=== PATIENT | male | born 1965 | race Caucasian/White ===

== ENCOUNTER 2021-02-08 13:14 | Emergency (ER) | payer OTHER, SELFPAY ==
[2021-02-08] VITALS (30 sets, daily range): BP systolic 102–147; BP diastolic 72–105; PULSE 57–69; RESP 14–20; TEMP 36.9; O2SAT 92–98
--- NOTE | ~2021-02-08 | CT_ITS ---
EXAMINATION: CT abdomen pelvis w con DATE: 02/08/2021 15:09 INDICATION: Right lower quadrant abdominal pain TECHNIQUE: Computed tomography (CT) of the abdomen and pelvis was performed with 100 cc Omnipaque 350 intravenous contrast. Automated exposure control and iterative reconstruction technique were employe d. Exam dose: 641.11 mGy-cm total exam DLP. COMPARISON: 12/14/2014 Limited abdominal ultrasound examination FINDINGS: The lung bases are clear of consolidation. Normal heart size. No pericardial or pleural eff usion. There are couple of very small hypoattenuating hepatic lesions, most likely small cysts, but too smal l to definitively characterize. The liver, gallbladder, bile ducts, pancreas, pancreatic duct, spleen and adrenal glands are otherwise unremarkable. There is an approximately 3.2 x 5 mm distal right ureteral calculus within 1 cm of the right ureterov esical junction, with moderate right hydroureteronephrosis. No other urinary tract calculus. No left hydroureteronephrosis. 3.6 cm exophytic medial lower pole left renal cyst. Normal caliber of the abdominal aorta. No intraperitoneal or retroperitoneal or pelvic mass lesion or adenopathy or ascites. Normal appendix. No bowel obstruction, bowel wall thickening, pneumatosis or intraperitoneal free air . Small fat-containing left inguinal hernia. Prostate enlargement and calcification. The urinary bladder is unremarkable. The tract of a former fixation device of the proximal right femur is noted. No suspicious osteolytic or osteoblastic lesions. IMPRESSION: 3.2 x 5 mm distal right ureteral obstructing calculus with proximal right hydroureterone phrosis 3.6 cm left exophytic lower pole renal cyst Two very small hepatic probable cysts Reviewed, dictated and finalized at [facility]. Reviewed, dictated and finalized at [facility]. IMPRESSION: 3.2 x 5 mm distal right ureteral obstructing calculus with proxima l right hydroureteronephrosis 3.6 cm left exophytic lower pole renal cyst Two very small hepatic probable cysts
--- NOTE | 2021-02-08 13:50 | ED.ABDPAIN ---
HPI - Abdominal Pain General Chief Complaint: Abdominal Pain Stated Complaint: abd pain Time Seen by Provider: 02/08/21 13:35 Source: patient Mode of arrival: ambulatory Limitations: no limitations History of Present Illness HPI narrative: Patient is a 55-year-old male complaining of right lower quadrant pain, 9 out of 10, sharp, nonradiating accompanied by nausea that started last night. Patient denies any chest pain, shortness of breath, vomiting, diarrhea, fever, chills or urinary symptoms. Related Data Home Medications Medication Instructions Recorded Confirmed gabapentin 600 mg tablet 600 mg PO TID 01/23/21 Allergies Allergy/AdvReac Type Severity Reaction Status Date / Time No Known Allergies Allergy Verified 02/08/21 13:25 Review of Systems Review of Systems: All systems reviewed & are unremarkable except as noted in HPI and below Constitutional: Constitutional: Denies body ache(s), Denies chills, Denies excessive sweating, Denies fatigue, Denies fever(s), Denies headache(s), Denies lethargy, Denies malaise, Denies weakness and Denies weight loss Eyes: Eyes: Denies blurry vision, Denies change in vision and Denies loss of vision ENT: Denies dizziness, Denies ear discharge, Denies headache(s), Denies lip swelling, Denies epistaxis, Denies nasal congestion, Denies neck pain, Denies throat swelling and Denies tongue swelling Cardiovascular: Cardiovascular: Denies chest pain, Denies chest pain at rest, Denies chest pain with activity, Denies diaphoresis, Denies rapid heart rate, Denies edema, Denies irregular heart rhythm, Denies lightheadedness, Denies palpitations, Denies dyspnea and Denies dyspnea on exertion Respiratory: Respiratory: Denies chest congestion, Denies cough, Denies hemoptysis, Denies dyspnea and Denies dyspnea on exertion Gastrointestinal: Gastrointestinal: Denies melena, Denies hematochezia, Denies diarrhea, Denies vomiting and Denies hematemesis Musculoskeletal: Musculoskeletal: Denies abnormal gait, Denies deformity, Denies joint swelling, Denies limited range of motion, Denies neck pain and Denies numbness Neurologic: Denies Abnormal speech present, Denies abnormal gait, Denies confusion, Denies dizziness, Denies headache(s), Denies focal weakness, Denies loss of vision, Denies numbness, Denies Other visual disturbances, Denies Sensory deficit (Neuro) and Denies weakness Psychiatric: Psychiatric: Denies confusion, Denies depression, Denies auditory hallucinations, Denies homicidal ideation and Denies suicidal ideation Endocrine: Endocrine: Denies cold intolerance, Denies excessive sweating, Denies fatigue, Denies heat intolerance and Denies palpitations Hematologic/Lymphatic: Hematologic/Lymphatic: Denies easy bleeding and Denies easy bruising Allergic/Immunologic: Allergic/Immunologic: Denies lip swelling, Denies throat swelling and Denies tongue swelling PMFSH Past Medical History Medical History History of anxiety History of depression History of femur fracture History of high cholesterol History of sleep apnea Left knee pain Right knee pain Wears glasses Surgical History Surgical History History of hernia repair History of tonsillectomy Family History Family History Unknown Cardiovascular disease Arthritis Cancer Social History Social History Smoking packs per day: 2 Smoking cigarettes per day: 40.0 Years smoked: 20 Smoking pack-years: 40.00 Smoking status: Former smoker 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
[2021-02-08] MEDS: SODIUM CHLORIDE 0.9% IV 1,000 ML 999 ML IV CONT (14:08)
[2021-02-08] MEDS: PROMETHAZINE HCL 25 MG/ML AMPUL 12.5 MG IV PUSH (14:09)
[2021-02-08] MEDS: HYDROmorphone HCL INJ (*CRX) 1 MG/ML SYR 0.5 MG IV PUSH (14:09)
[2021-02-08 14:17] LABS: Basophils Absolute Auto 0.1 K/mm3 (0.0-0.1); Basophils Percent Auto 0.4 % (0.2-1.2); Eosinophils Percent Auto 0.3 % (0-4.4); Hematocrit 46.3 % (42.0-52.0); Hemoglobin 15.4 g/dL (14.0-18.0); Immature Granulocyte Absolute 0.07 K/mm3 (0.00-0.031); Immature Granulocyte Percent A 0.5 % (0-0.5); Mean Corpuscular HGB Conc 33.3 g/dl (32-36); Mean Corpuscular Hemoglobin 28.6 pg (26-34); Mean Corpuscular Volume 85.9 fl (80-100); Mean Platelet Volume 9.4 fl (7.4-10.4); Monocytes Absolute Auto 1.3 K/mm3 (0.1-0.6); Monocytes Percent Auto 9.7 % (2.6-8.5); Neutrophils Absolute Auto 10.3 K/mm3 (1.3-6.7); Neutrophils Percent Auto 77.1 % (45.5-73.1); Platelet Count Result 287 k/mm3 (150-375); Red Blood Count 5.39 M/mm3 (4.6-6.20); White Blood Count 13.4 K/mm3 (4.5-10.0)
[2021-02-08 14:31] LABS: Alanine Aminotransferase 18 U/L (4-50); Albumin Level 4.4 g/dL (3.5-5.1); Alkaline Phosphatase 68 U/L (38-126); Anion Gap 11 mmol/L (8-16); Aspartate Amino Transferase 24 U/L (17-59); Bilirubin,Total 1.4 mg/dL (0.2-1.3); Blood Urea Nitrogen 17 mg/dL (9-20); Calcium 9.6 mg/dL (8.4-10.2); Carbon Dioxide 26 mmol/L (22-30); Chloride 101 mmol/L (98-107); Estimated CRCL calculation 59 ml/min; Estimated Glomerular Filt Rate > 60; Glucose 135 mg/dL (65-110); Lipase 37 U/L (23-300); Potassium 3.9 mmol/L (3.4-5.0); Sodium 138 mmol/L (137-145)
--- NOTE | 2021-02-08 15:08 | PC.NURSE ---
Pt returned from CT scan
[2021-02-08] MEDS: KETOROLAC 30 MG/ML VIAL (*BKC) IV PUSH (15:14)
[2021-02-08 16:41] LABS: Add Urine Microscopic? YES; Appearance Urine Clear (Clear); Bilirubin Urine Negative (Negative); Blood Urine 2+ (Negative); Color Urine Straw (Yellow); Glucose Urine UA Negative (Negative); Ketones Urine Negative (Negative); Leukocyte Esterase Ur Negative LEU/UL (Negative); Mucus Urine Rare /lpf; Nitrate Urine Negative (Negative); Protein Urine Negative (Negative); Urobilinogen Urine Negative mg/dL (<2.0); WBC Urine 0-3 /hpf
[2021-02-08] MEDS: TAMSULOSIN HCL 0.4 MG CAPSULE PO (17:50)
== END 2021-02-08 17:51 | disposition home or self-care (01) ==
PROVIDERS: Emergency Provider Emergency Medicine; PCP Internal Medicine
DX: N13.2 Hydronephrosis with renal and ureteral calculous obstruction (principal); E78.00 Pure hypercholesterolemia, unspecified; G47.30 Sleep apnea, unspecified; Z87.891 Personal history of nicotine dependence; N28.1 Cyst of kidney, acquired
CPT/HCPCS: 36415; 74177; 80053; 81001; 83690; 85025; 96361; 96374; 96375; 99284; A9270; J1170; J1885; J2550; J7030; Q9967

== ENCOUNTER 2021-02-11 01:45 | Day surgery (SDC) | payer OTHER, SELFPAY ==
[2021-02-10 13:28] VITALS: BMI 29.6
--- NOTE | 2021-02-10 14:01 | P.PNAN_ITS ---
Anes - Initial Pre Proc Eval Procedure: Operation Date: 02/11/21 10:30 Proposed Procedures p Cystoscopy, Right Ureteroscopy, Possible Retrograde Pyelogram, Stone Extraction, Stent Placement - Jakob Woodruff MD s Possible Holmium Laser Procedure - Jakob Woodruff MD Date/Time: 02/10/21 14:01 Surgeon: Jakob Woodruff MD Pre Op Diagnosis: right kidney stones Patient Data Age: 55 Gender: M Height: 1.73 m Weight: 88.45 kg Allergies Allergy/AdvReac Type Severity Reaction Status Date / Time No Known Allergies Allergy Verified 02/11/21 08:38 Home Medications Medication Instructions Recorded Confirmed Type gabapentin 600 mg tablet 600 mg PO TID 01/23/21 02/10/21 History hydrocodone-acetaminophen 1 tablet PO Q6H PRN #10 tablet 02/08/21 02/10/21 Rx ketorolac 10 mg PO Q6H PRN 3 Days tablet 02/08/21 02/10/21 Rx tamsulosin [Flomax] 0.4 mg PO DAILY #5 cap 02/08/21 02/10/21 Rx Patient hx anesthesia problems: none Family hx anesthesia problems: none PMFSH Past Medical History Medical History (Updated 02/10/21 @ 14:01 by Zane Baltazar DO) History of anxiety History of depression History of femur fracture History of high cholesterol History of sleep apnea CPAP Hypertension Left knee pain Right knee pain Wears glasses Surgical History Surgical History History of hernia repair History of tonsillectomy Family History Family History Unknown Cardiovascular disease Arthritis Cancer Social History Social History Smoking packs per day: 2 Smoking cigarettes per day: 40.0 Years smoked: 20 Smoking pack-years: 40.00 Smoking status: Former smoker Tobacco type: cigarettes Smoking end date: 06/14/07 Living arrangements: with family 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 Gender identity (if verbalized by the patient): Male Spiritual care concerns: No Anes - Eval Final PreProcedure Day of Procedure 02/10/21 14:01 Patient weight: overweight Heart: regular rate and rhythm Lungs: clear to auscultation and normal air movement Airway: Mallampati scale class III Neurological: alert and oriented Last oral intake: >/= 8 hours ASA classification: III Emergent: no Anesthetic plan: proceed Anesthesia type and monitoring: general LMA and standard monitoring Informed Consent: The patient's anesthetic plan and its attendant risks and benefits were discussed with the patient/family/POA. Questions were solicited and answers provided to the satisfaction of the patient/family/POA.
[2021-02-11] VITALS (9 sets, daily range): BP systolic 94–127; BP diastolic 56–85; PULSE 50–60; RESP 9–20; TEMP 36.4; O2SAT 94–99; BMI 29.4
--- NOTE | ~2021-02-11 | CT_ITS ---
EXAMINATION: CT abdomen pelvis wo con DATE: 02/11/2021 09:28 INDICATION: Right flank pain TECHNIQUE: Computed tomography (CT) of the abdomen and pelvis was performed without intravenous contr ast. The dose-length product (DLP) was 231.55 mGy-cm. Automated exposure control and iterative recons truction technique were employed. COMPARISON: 02/08/2021 FINDINGS: Minimal dependent atelectasis is present in the lung bases. The heart size is normal. The l iver, spleen, pancreas, gallbladder, and adrenal glands are normal. There is a 3 mm stone in the urin steph bladder near the right ureterovesicular junction which has passed from the distal right ureter on the comparison examination. Right hydroureteronephrosis has improved. There is a 3.5 cm cyst of the left kidney lower pole. No pathologically enlarged abdominal or pelvic lymph nodes are identified. Th ere is no free intraperitoneal gas or evidence of bowel obstruction. There is calcified atheroscleros is of the aorta and many of the other arteries. A tiny fat-containing umbilical hernia is noted. Ther e is mild lumbar spondylosis. IMPRESSION: 1. 3 mm stone in the bladder which appears to have passed from the distal right ureter. Improved righ t hydroureteronephrosis. Reviewed, dictated and finalized at [facility]. IMPRESSION: 1. 3 mm stone in the bladder which appears to have passed from the distal right ureter. Improved right hydroureteronephrosis.
--- NOTE | 2021-02-11 08:47 | ECG_ITS ---
Measurements Intervals [place] Rate: 56 P: 57 FL: 146 QRS: 23 QRSD: 98 T: 10 QT: 405 QTc: 394 Interpretive Statements SINUS BRADYCARDIA DELAYED PRECORDIAL R/S TRANSITION BASELINE WANDER- V3-V4 BORDERLINE ECG Electronically Signed On 02-11-2021 9:19:52 CDT by Amrit Simpson D.O.
--- NOTE | 2021-02-11 09:08 | WPDHPUPDATE1 ---
History and Physical Update Update Date/Time: 02/11/21 09:08 History and Physical has been reviewed, including an updated exam of the patient. There are NO changes in the patient's condition. Risks, benefits, and alternatives have been discussed and questions answered. Patient agrees to proceed with procedure. Proceed with cystoscopy, right retrograde pyelogram, right ureteroscopy with stone extraction, possible holmium laser and stent placement
[2021-02-11] MEDS: LACTATED RINGERS 1,000 ML 30 ML IV CONT (09:17)
--- NOTE | 2021-02-11 09:17 | SUR.PREOP ---
0910; DR KEYES IN ROOM SPEAKING TO PT. STAT CT SCAN ABD/PELVIS WITHOUT CONTRAST ORDERED.
--- NOTE | 2021-02-11 09:21 | SUR.PREOP ---
PT TO CT SCAN PER W/C
[2021-02-11] MEDS: ceFAZolin 2 GM/D5W 50 ML 2 GM/50 ML BAG IVPB (10:14)
[2021-02-11] MEDS: LIDOCAINE HCL 2% GEL UROJET 10 ML PKG MUCOUS MEM (10:30)
--- NOTE | 2021-02-11 10:35 | P.OP_ITS ---
Procedure Note - Detailed Date of Procedure 02/11/21 Pre-op Diagnosis Right ureteral calculus Post-op Diagnosis same (Recent passage into bladder) Procedure Performed Cystoscopy with stone extraction, right ureteroscopy Surgeon Jakob Woodruff MD Anesthesia general Description of Procedure Patient is taken to the operative suite correctly identified. Once anesthesia was obtained he was placed in dorsal lithotomy position and prepped draped usual sterile fashion. Twenty-two Icelandic scope inserted into the bladder direct vision. There were no urethral strictures. He does have slightly elevated median bar area. Upon entering the bladder we visualized the stone that was adjacent to the right ureteral orifice. We extracted the stone was sent for analysis. We went ahead and proceeded with a ureteroscopy to make sure this indeed was the ureteral stone that had passed. There were no other stones noted in the ureter. Given the very little manipulation we did not place a stent. 2% viscous lidocaine was placed into the urethra. Patient is taken recovery room stable condition. Drains No Packing No Pathology yes Complications No immediate complications Condition stable Disposition PACU
== END 2021-02-11 12:21 | disposition home or self-care (01) ==
PROVIDERS: PCP Internal Medicine; Visit Provider Urology
PROC: (CPT 52352; principal; 2021-02-11 10:30)
DX: N20.1 Calculus of ureter (principal); F41.8 Other specified anxiety disorders; E78.00 Pure hypercholesterolemia, unspecified; I10 Essential (primary) hypertension; G47.30 Sleep apnea, unspecified; Z87.891 Personal history of nicotine dependence
CPT/HCPCS: 52352; 74176; 82365; 88300; 93005; A9270; J0690; J1100; J2250; J2405; J2704; J3010; J7120

== ENCOUNTER 2021-09-12 15:08 | Emergency (ER) | payer OTHER, SELFPAY ==
[2021-09-12 15:35] VITALS: BP 128/81; PULSE 75; RESP 18; TEMP 36.5; O2SAT 100
--- NOTE | 2021-09-12 16:14 | PC.NURSE ---
Pt ambulated to ER room from waiting room. Noted to have laceration to right forearm. States this happened today in his own attic. pt is in no distress, bleeding is controlled. pt is not up to date on tetanus.
--- NOTE | 2021-09-12 16:38 | ED.GENADULT ---
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 States he was walking when a metal beam accidentally scraped his arm. States metal was clean and intact. Washed area with soap and water LEAN LEADER. Tetanus not UTD. No numbness, tingling, decreased ROM in hand. Denies fevers, chills. Uses a saw for work so he uses his arms often. Related Data Home Medications Medication Instructions Recorded Confirmed gabapentin 600 mg tablet 600 mg PO TID 01/23/21 02/11/21 Allergies Allergy/AdvReac Type Severity Reaction Status Date / Time No Known Allergies Allergy Verified 02/11/21 08:38 Review of Systems Review of Systems: All systems reviewed & are unremarkable except as noted in HPI and below PMFSH Past Medical History Medical History History of anxiety History of depression History of femur fracture History of high cholesterol History of sleep apnea CPAP Hypertension Left knee pain Right knee pain Wears glasses Surgical History Surgical History History of hernia repair History of tonsillectomy Family History Family History Unknown Cardiovascular disease Arthritis Cancer Social History Social History Smoking packs per day: 2 Smoking cigarettes per day: 40.0 Years smoked: 20 Smoking pack-years: 40.00 Smoking status: Former smoker Tobacco type: cigarettes Smoking end date: 06/14/07 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 No surrounding erythema, edema or discharge. Hemostasis achieved LEAN LEADER Neuro: General: patient oriented x3 and moves all extremities Extrem: Other: Patient is neurovascularly intact in his distal arms bilaterally Course Vital Signs Vital signs: Vital Signs Temperature 97.7 F 09/12/21 15:35 Pulse Rate 75 09/12/21 15:35 Respiratory Rate 18 09/12/21 15:35 Blood Pressure 128/81 09/12/21 15:35 Pulse Oximetry 100 09/12/21 15:35 Temperature 97.8 F 09/12/21 18:04 Pulse Rate 66 09/12/21 18:04 Respiratory Rate 18 09/12/21 18:04 Blood Pressure 126/86 09/12/21 18:04 Pulse Oximetry 96 09/12/21 18:04 Procedures Laceration Laceration 1: Date: 09/12/21 Time: 18:05 Site: upper extremity (right forearm) Description: linear Depth: simple, single layer Local Anesthetic: lidocaine 1% (lidocaine 0.5%) and with epi Amount of anesthesia used (mL): 3 Pre-repair: wound explored, irrigated and irrigated extensively (with tap water and soap, saline in syringe) ====== Skin Level ====== Skin layer closed with: other (ethilon) Size (cm): 4-0 Number of sutures: 3 Technique: simple, interrupted ====== Subcutaneous Layer ====== ====== Muscle Layer ====== ====== Tendon Layer ====== Medical Decision Making MDM Narrative Medical decision making narrative: 56 year old male here after sustaining laceration to right forearm from metal bannister 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 Neurovascularly intact distall
[2021-09-12] MEDS: TETANUS,DIPHTHERIA,AC PERTUSSIS ADULT (0.5 ML) BOOSTRIX IM (17:54)
[2021-09-12 18:04] VITALS: BP 126/86; PULSE 66; RESP 18; TEMP 36.6; O2SAT 96
== END 2021-09-12 18:16 | disposition home or self-care (01) ==
PROVIDERS: Emergency Provider Emergency Medicine; PCP Internal Medicine
DX: S51.811A Laceration without foreign body of right forearm, initial encounter (principal); Z23 Encounter for immunization; E78.00 Pure hypercholesterolemia, unspecified; G47.30 Sleep apnea, unspecified; I10 Essential (primary) hypertension; Z87.891 Personal history of nicotine dependence; W26.8XXA Contact with other sharp object(s), not elsewhere classified, initial encounter
CPT/HCPCS: 12002; 90471; 90715; 99282

== ENCOUNTER 2024-05-15 13:01 | Outpatient (CLI) | payer OTHER, SELFPAY ==
--- NOTE | ~2024-05-15 | XR_ITS ---
Left Hand Technique: PA and lateral views were obtained. Clinical History: Lupus Findings: No acute fracture or dislocation is seen. Osseous alignment is anatomic. Joint spaces are p reserved. Soft tissues are unremarkable. Impression: Unremarkable left hand. Reviewed, dictated and finalized at [facility]. T SERVICE SUPERVISOR Impression: Unremarkable left hand.
--- NOTE | ~2024-05-15 | XR_ITS ---
XR hand RT min 3V Ordering provider: Jayce Echeverria MD History: . Positive MOJGAN, LUPUS, NO HAND COMPLAINTS . Comparison: None. FINDINGS: BONES: No acute fracture or dislocation. JOINT SPACES: Narrowing of the first metacarpophalangeal joint with possible erosive changes. Erosive changes are also seen in the scaphoid. SOFT TISSUES: Normal. IMPRESSION: No acute osseous abnormality right hand. Narrowing of the first metacarpophalangeal joint with cystic changes in the scaphoid bone. This may b e osteoarthritic. Clinical correlation and follow-up advised. Reviewed, dictated and finalized at [facility]. 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 Narrowing of the first metacarpophalangeal joint with cystic changes in the sca phoid bone. This may be osteoarthritic. Clinical correlation and follow-up advi sed.
== END 2024-05-15 13:02 | disposition home or self-care (01) ==
PROVIDERS: PCP Family Medicine; Visit Provider Internal Medicine
DX: R76.8 Other specified abnormal immunological findings in serum (principal); M32.9 Systemic lupus erythematosus, unspecified
CPT/HCPCS: 73130